=== PATIENT | female | born 1965 | race Hispanic/Latino ===

== ENCOUNTER 2024-10-29 17:58 | Emergency (ER) | payer MEDICARE ==
[~2024-10-29] VITALS: Ht 152.4 cm; Wt 84.1 kg
[~2024-10-29 17:58] MED LIST: ATORVASTATIN CA20 MG PO; AZITHROMYCIN250 MG PO; DIPHENHYDRAMINE25 MG PO; IBUPROFEN200 MG PO; JARDIANCE25 MG; KETOROLAC TROME10 MG PO; METOPROLOL SUCC50 MG PO; PLAVIX75 MG PO; TRULICITY1.5 MG/0.5; TYLENOL325 MG PO
[2024-10-29] MEDS ORDERED: KETOROLAC TROMETHAMINE 30 MG/ML VIAL IM STA (18:20)
[2024-10-29] MEDS ORDERED: TAMIFLU75 MG PO (18:43)
[2024-10-29] MEDS ORDERED: VENTOLIN HFA18 GM INH (18:45)
[2024-10-29] MEDS: ACETAMINOPHEN 325 MG TAB PO ONE (18:54)
[2024-10-29 18:58] VITALS: PULSE 62; RESP 18; TEMP 99.3; O2SAT 100
== END 2024-10-29 18:58 | disposition home or self-care (01) ==
LOC: FSED 18:03
DX: R05.9 Cough, unspecified (principal); J10.1 Influenza due to other identified influenza virus with other respiratory manifestations; I10 Essential (primary) hypertension; E11.9 Type 2 diabetes mellitus without complications; E78.5 Hyperlipidemia, unspecified; I25.10 Atherosclerotic heart disease of native coronary artery without angina pectoris; Z11.52 Encounter for screening for COVID-19; Z85.53 Personal history of malignant neoplasm of renal pelvis
CPT/HCPCS: 0223U; 87400; 99283

== ENCOUNTER 2024-11-18 09:18 | Emergency (ER) | payer MEDICARE ==
[~2024-11-18] VITALS: Ht 152.4 cm; Wt 83.9 kg
[~2024-11-18 09:18] MED LIST changes: +TAMIFLU75 MG PO; +VENTOLIN HFA18 GM INH
[2024-11-18 09:25] VITALS: PULSE 60; RESP 20; TEMP 97.5
[2024-11-18] MEDS: TRAMADOL HCL 50 MG TAB PO ONE (09:54)
[2024-11-18] MEDS: BACITRACIN ZINC 0.9GM TP ONE (09:54)
[2024-11-18] MEDS ORDERED: CELEBREX200 MG PO (10:59)
[2024-11-18] MEDS ORDERED: ULTRAM 50MG50 MG PO (11:00)
[2024-11-18 11:28] VITALS: BP 130/86; PULSE 54; RESP 20; TEMP 98.5; O2SAT 98
== END 2024-11-18 11:20 | disposition home or self-care (01) ==
LOC: FSED 09:28
DX: S82.432A Displaced oblique fracture of shaft of left fibula, initial encounter for closed fracture (principal); S80.02XA Contusion of left knee, initial encounter; M25.472 Effusion, left ankle; V19.88XA Pedal cyclist (driver) (passenger) injured in other specified transport accidents, initial encounter; Y93.55 Activity, bike riding; I10 Essential (primary) hypertension; E11.9 Type 2 diabetes mellitus without complications; I25.10 Atherosclerotic heart disease of native coronary artery without angina pectoris; E78.5 Hyperlipidemia, unspecified; M54.9 Dorsalgia, unspecified; G89.29 Other chronic pain; Z85.53 Personal history of malignant neoplasm of renal pelvis; Z95.1 Presence of aortocoronary bypass graft
CPT/HCPCS: 99284